=== PATIENT | female | born 1995 | race Caucasian/White ===

== ENCOUNTER → 2016-11-16 | Outpatient (CLI) | payer BC, OTHER ==
[2016-11-16 18:20] LABS: BASO % 0.1 %; BASO ABS # 0.01 K/uL (0-0.2); COMPLETE YES; EOS % 1.1 %; HEMATOCRIT 42.2 % (37-47); IG% 0.3 %; LYMPH % 34.3 %; LYMPH ABS # 2.49 K/uL (1.2-3.4); MEAN CELL VOLUME 86.5 fL (80-100); MEAN CORPUSCULAR HEMOGLOBIN 28.9 pg (25-34); MEAN CORPUSCULAR HGB CONC 33.4 g/dl (32-36); MEAN PLATELET VOLUME 8.6 fL (7.4-10.4); MONO % 4.8 %; NEUT % 59.4 %; PLATELET COUNT 373 K/uL (130-400); RED BLOOD COUNT 4.88 M/uL (4.2-5.4); WHITE BLOOD COUNT 7.26 K/uL (4.8-10.8)
[2016-11-16 18:37] LABS: ALT/SGPT 25 U/L (12-78); BLOOD UREA NITROGEN 13 mg/dl (7-18); BUN/CREATININE RATIO 13.7 (10-20); CALCIUM 8.8 mg/dl (8.5-10.1); CARBON DIOXIDE 28 mmol/L (21-32); CHLORIDE 107 mmol/L (98-107); CHOLESTEROL 202 mg/dl (0-200); CREATININE 0.95 mg/dl (0.60-1.20); GLUCOSE 93 mg/dl (70-99); POTASSIUM 3.9 mmol/L (3.5-5.1); SODIUM 142 mmol/L (136-145)
[2016-11-16 18:40] LABS: ALB/GLOB RATIO 1.1 (0.9-2); ALKALINE PHOSPHATASE 117 U/L (45-117); AST/SGOT 17 U/L (15-37); CHOLESTEROL/HDL RATIO 4.6; HDL CHOLESTEROL 44 mg/dl; LDL CHOLESTEROL CALCULATED 89 mg/dl; TRIGLYCERIDES 346 mg/dl (0-150); VERY LOW DENSITY LIPOPROT CALC 69 mg/dl
== END | disposition home or self-care (01) ==
LOC: C.LABSPEC 14:08
PROVIDERS: ATTEND Family Medicine
DX: Z00.00 Encounter for general adult medical examination without abnormal findings (principal); F41.1 Generalized anxiety disorder; Z68.38 Body mass index [BMI] 38.0-38.9, adult

== ENCOUNTER 2021-02-11 07:32 | Inpatient (IN) ==
[2021-02-11] MEDS ORDERED: OXYTOCIN 30 UNITS/500 ML BAG IV PRN ×2 (07:39)
[2021-02-11 08:04] LABS: Hematocrit (blood only) 38.4 % (37-47); Mean Corpuscular Hgb Conc 33.9 g/dL (32-36); Mean Corpuscular Volume 91.6 fL (80-100); Mean Platelet Volume 8.5 fL (7.4-10.4); Platelet Count 244 K/uL (130-400); RDW Coefficient of Variation 14.1 % (11.5-14.5); RDW Standard Deviation 47.5 fL (36.4-46.3); Red Blood Count 4.19 M/uL (4.2-5.4); White Blood Count 13.31 K/uL (4.8-10.8)
--- NOTE | 2021-02-11 08:17 | History & Physical Report ---
Date of Service February 11, 2021 Assessment & Plan (1) Encounter for induction of labor: Plan: 25 year old at 40 weeks 3 days coming in for IOL. - FHR baseline 140's, reactive NST, contractions every 4 minutes, movement active. - Started on LR and pitocin. Patient made aware of possible stronger contractions on pitocin and was agreeable. - Continue to monitor FHR and toco tracings and monitor patient. (2) Herpes: Plan: Patient on valtrex 500mg bid. - Patient does not want HSV history discussed with family in room. Admission and Anticipated Discharge Date Admission Date: February 11, 2021 History of Present Illness Chief Complaint: IOL Primary Care Provider: Carmelo Spence DO 25 year old 40 weeks and 3 days. Here for induction of labor. Complications with this include history of HSV on valtrex (Not to be discussed with other family members of patient in room). Has been attending OB appointments regularly. Currently on valtrex 500mg bid, ondansetron, multivitamin. Patient had Johnson catheter placed yesterday. Contractions: 4 minutes apart Fluid or blood loss: Some spotting, no fluid loss. movement: active. Allergies Allergy/AdvReac Type Severity Reaction Status Date / Time No Known Allergies Allergy Verified 02/11/21 08:09 Home Medications Medication Instructions Recorded Confirmed Type pediatric dtzszjim-bznh-wgr 1 tab PO DAILY 07/14/20 02/11/21 History (Francoise Complete (iron)) ondansetron HCl 4 mg tablet 4 mg PO Q8H #20 tab 10/22/20 02/11/21 Rx valacyclovir 500 mg tablet 500 mg PO BID 35 Days #70 tab 01/13/21 02/11/21 Rx (Valtrex) Patient History Medical History (Updated 02/11/21 @ 08:27 by Sal Wise DO) Anxiety Depression History of chicken pox Surgical History (Updated 07/14/20 @ 09:04 by Bridget Mccloud) S/P wisdom tooth extraction Family History (Updated 07/14/20 @ 09:05 by Bridget Mccloud) Grandmother (Maternal) Breast cancer Denies family history of Ovarian cancer Colorectal cancer Social History (Updated 07/14/20 @ 09:07 by Bridget Mccloud) Smoking Status: Never smoker Tobacco Type: Cigarettes Cigarettes Per Day: 5; Hx Alcohol Use: No Hx Substance Use: No Preferred Language: [place] Communication Ability: Effective Custom Tailor Required: No Beliefs That Will Affect Care: None marital status: Single marital status details: Soham Rene (35) [phone] Current Living Situation: Significant Other Current Living Situation Comment: lives alone, no pets current occupational status: employed current occupation: [employer] officer Other Information That Helps Us Care for You: No Feels Safe at Home: Yes Safety Concerns: Afraid for Self OB History No prior pregnancies. Review of Systems Denies fever, chills, sweats Denies shortness of breath, difficulty breathing, chest pain, palpitations, chest pressure. Denies breast pain. Denies dysuria. Denies headache or changes in vision Physical Exam Physical Exam: General: Alert, oriented. No acute distress. Cardiac: Regular rate and rhythm, no murmurs/rubs/gallops. Respiratory: Clear to auscultation bilaterally a/p, no wheezes/rales/rhonchi. No increased work of breathing. Symmetrical chest rise. No respiratory distress. Pelvic: Dilation 4cm; Effacement 50%; Station -[address] Braswell Baseline: 140's Accelerations: Present, reactive NST. Decelerations: None Results & Data ([facility]) Vital Signs (Past 12 Hours) Vital Signs Temp Pulse Resp BP 02/11/21 07:52 37.1 C 122 H 20 139/82 Laboratory Results - B+ - Antibody screen negative - Hgb 13 - Hct 38.4 - WBC 13.31 - Plt 244 - Rubella Immune - RPR non-reactive - Gonorrhea negative - Chlamydia negative - GBS - - Glucose 1 hour 50mg test 125 Supervising Physician Co-Signing Physician Notes Resident Physician Supervision Note: I was present with Dr. Lux during the history and exam. I discussed the case with the resident and agree with the findings and plan as documented in the note. Any exceptions or clarifications are listed here: at 40+ weeks who presents for induction of labor for postdates. Foely placed last night and removed this am--3.5/50/-2/mid/mod. Fetus category one. Plan pit induction. arom when indicated. epidural on demand. efw 8-9. Anticipate . Documented By: Chrissy Braswell MD, FACOG Resident Activity Tracking Resident Involvement: Resident Care Provided Care Provided: OB Delivery
[2021-02-11] MEDS: LACTATED RINGER'S 1,000 ML IV PRN ×4 (09:11→21:46)
[2021-02-11] MEDS ORDERED: BUTORPHANOL TARTRATE 1 MG/ML VIAL IV ONE (14:50)
--- NOTE | 2021-02-11 14:50 | Labor Progress Brief Note ---
Date of Service February 11, 2021 Subjective patient getting uncomfortable , requesting options for pain. Assessment & Plan (1) Encounter for induction of labor: Plan: mec with arom, will make peds aware. pain management discussed, opts for stadol. fetus category one. Admission and Anticipated Discharge Date Admission Date: February 11, 2021 Physical Exam Physical Exam: cx--4+/75/-2 arom--copious , thin green mec toco--q2-3min, pit at 13 efm--130s with mod variability, accels to 150s, no decels Results & Data ([facility]) Vital Signs (Past 12 Hours) Vital Signs Temp Pulse Resp BP 02/11/21 14:01 82 20 120/76 02/11/21 12:57 86 106/67 02/11/21 12:56 37.1 C 20 02/11/21 12:02 78 115/71 02/11/21 10:44 37.0 C 93 H 20 105/70 02/11/21 09:53 85 118/73 02/11/21 08:58 96 H 111/69 02/11/21 07:52 37.1 C 122 H 20 139/82 Coding Level of Care Code None Diagnoses Encounter for induction of labor Z34.90
[2021-02-11] MEDS ORDERED: SODIUM CHLORIDE 0.9% INJ 10 ML VIAL ONE (16:04)
[2021-02-11] MEDS ORDERED: ePHEDrine sulfate 50 MG/ML AMP ONE (16:04)
[2021-02-11] MEDS ORDERED: fentaNYL citrate 100 MCG/2 ML VIAL ONE ×2 (16:05→21:08)
[2021-02-11] MEDS ORDERED: BUPIVACAINE 0.25% 30 ML VIAL ONE ×2 (16:05→21:08)
[2021-02-11] MEDS ORDERED: fentaNYL 2MCG/ML ROPIVACAINE 1.25MG/ML 100 ML BAG EPI ONE (16:05)
[2021-02-11] MEDS ORDERED: ONDANSETRON INJ 2 MG/ML 2 ML VIAL IV PRN (16:16)
[2021-02-11] MEDS ORDERED: NALOXONE HCL 0.4 MG/1 ML VIAL/CARP IV PRN (16:16)
[2021-02-11] MEDS ORDERED: NALOXONE HCL 1 MG in SODIUM CHLORIDE 0.9% 1000ML 1,000 ML IV PRN (16:16)
[2021-02-11] MEDS ORDERED: ePHEDrine sulfate 50 MG/ML AMP IV PRN (16:16)
[2021-02-11] MEDS ORDERED: NALBUPHINE HCL INJ 10 MG/ML AMP IV PRN (16:16)
[2021-02-11] MEDS ORDERED: diphenhydrAMINE 50 MG/ML VIAL IV PRN (16:16)
--- NOTE | 2021-02-11 16:19 | Anesthesiology Consultation ---
Date of Service February 11, 2021 Assessment & Plan (1) Encounter for pre-operative examination: Chart Review Chart Review: Patient NOT seen in Pre Admission Testing and Acceptable Risk for Labor Epidural Consults Requested none History Height/Weight Height: 5 ft 6 in Weight: 104.326 kg Allergies Allergy/AdvReac Type Severity Reaction Status Date / Time No Known Allergies Allergy Verified 02/11/21 08:09 Medications Home Medications Medication Instructions Recorded Confirmed Last Taken pediatric wthprymy-vsgw-pmg 1 tab PO DAILY 07/14/20 02/11/21 02/11/21 06:30 (Flintstones Complete (iron)) ondansetron HCl 4 mg tablet 4 mg PO Q8H #20 tab 10/22/20 02/11/21 02/11/21 06:30 valacyclovir 500 mg tablet 500 mg PO BID 35 Days #70 tab 01/13/21 02/11/21 02/11/21 06:30 (Valtrex) Active Medications Generic Name Dose Route Start Last Admin Trade Name Freq PRN Reason Stop Dose Admin Oxytocin 30 units in 500 mls @ 13 mls/hr 02/11/21 07:39 02/11/21 14:00 Pitocin IV 02/13/21 07:38 0.78 units/hr .Q24H PRN 13 mls/hr Labor Induction/Augmentation Titration Protocol 0.78 UNITS/HR Lactated Ringer's 1,000 mls @ 125 mls/hr 02/11/21 08:00 02/11/21 16:08 Lr IV 02/13/21 07:59 999 mls/hr .Q8H PRN Administration L&D Protocol Protocol Past Medical History Medical History Anxiety Depression History of chicken pox Exercise / Class Metabolic Activity II 4-5 Yardwork/Stairs/Walk up hill Past Family History Family History Grandmother (Maternal) Breast cancer Denies family history of Ovarian cancer Colorectal cancer Past Surgical History Surgical History S/P wisdom tooth extraction Past Anesthesia History No Hx of Anesthesia Complications and No Family Hx of Anesthesia Complications History of PONV No Hx of PONV and No Hx of Motion Sickness Social History Smoking Status: Never smoker Smoking cigarettes per day: 5 Hx Alcohol Use: No Hx Substance Use: No Physical Exam Vital Signs Last Vital Signs Temp 37.5 C 02/11/21 15:02 Pulse 95 H 02/11/21 16:38 Resp 20 02/11/21 15:02 BP 118/60 02/11/21 16:38 Pulse Ox 97 02/11/21 16:35 Testing Laboratory Results 02/11/21 07:49
[2021-02-11] MEDS: fentaNYL 2MCG/ML ROPIVACAINE 1.25MG/ML 100 ML BAG EPI PRN (16:41)
--- NOTE | 2021-02-11 17:49 | Labor Progress Brief Note ---
Date of Service February 11, 2021 Subjective Patient comfortable after epidural Assessment & Plan (1) Encounter for induction of labor: Plan: iupc placed. continue pit for >200mvus. fetus category one. Admission and Anticipated Discharge Date Admission Date: February 11, 2021 Physical Exam Physical Exam: cx--4-5/75/-2 iupc placed toco--q2-4, pit at 7, had to 1/2 as had an episode of tachysystole efm--140s with mod variability, accels to 160s, no decels Results & Data ([facility]) Vital Signs (Past 12 Hours) Vital Signs Temp Pulse Resp BP Pulse Ox 02/11/21 17:45 83 97 02/11/21 17:40 76 97 02/11/21 17:36 88 120/76 02/11/21 17:35 87 97 02/11/21 17:30 73 20 111/68 95 02/11/21 17:25 74 115/65 97 02/11/21 17:20 92 H 117/72 98 02/11/21 17:16 76 125/71 02/11/21 17:15 74 98 02/11/21 17:11 89 133/60 02/11/21 17:10 91 H 97 02/11/21 17:05 78 97 02/11/21 17:04 83 116/55 L 02/11/21 17:02 88 117/70 02/11/21 17:00 37.7 C H 81 20 116/70 96 02/11/21 16:56 86 151/65 H 02/11/21 16:55 85 97 02/11/21 16:54 93 H 143/58 H 02/11/21 16:53 85 94 02/11/21 16:52 84 144/65 H 02/11/21 16:50 79 18 125/68 98 02/11/21 16:48 88 137/67 02/11/21 16:45 90 98 02/11/21 16:44 82 121/59 L 02/11/21 16:42 91 H 130/86 02/11/21 16:40 88 126/64 97 02/11/21 16:39 20 02/11/21 16:38 95 H 118/60 02/11/21 16:36 86 125/79 02/11/21 16:35 95 H 97 02/11/21 16:30 90 98 02/11/21 16:25 100 H 98 02/11/21 16:20 89 99 02/11/21 16:15 97 H 97 02/11/21 16:10 90 98 02/11/21 16:05 78 99 02/11/21 16:02 86 126/73 02/11/21 16:00 85 98 02/11/21 15:03 86 122/82 02/11/21 15:02 37.5 C 20 02/11/21 14:01 82 20 120/76 02/11/21 12:57 86 106/67 02/11/21 12:56 37.1 C 20 02/11/21 12:02 78 115/71 02/11/21 10:44 37.0 C 93 H 20 105/70 02/11/21 09:53 85 118/73 02/11/21 08:58 96 H 111/69 02/11/21 07:52 37.1 C 122 H 20 139/82 Coding Level of Care Code None Diagnoses Encounter for induction of labor Z34.90
[2021-02-11] MEDS ORDERED: NURSING L&D Epidural Breakthrough Pain Update ONE (20:55)
--- NOTE | 2021-02-11 21:20 | Communication Note ---
Date of Service: February 11, 2021 Pt stated having increasing labor pains. The epidural was bolused with 0.25% bupivacaine 3 mL and fentanyl 50 mcg. VSS stable throughout. Pt stated having improved labor pain.
[2021-02-11] MEDS ORDERED: Nursing to Pharmacy Communication SCH (22:15)
[2021-02-12] MEDS: fentaNYL 2MCG/ML ROPIVACAINE 1.25MG/ML 100 ML BAG EPI PRN ×2 (01:35→08:09)
--- NOTE | 2021-02-12 01:36 | Labor Progress Brief Note ---
Date of Service February 12, 2021 Subjective Patient comfortable after epidural Assessment & Plan (1) Encounter for induction of labor: Plan: Making good progress, head really molding . Fetus category one. Continue cu rrent management. Admission and Anticipated Discharge Date Admission Date: February 11, 2021 Physical Exam Physical Exam: cx--9/100/0 toco--q2-3, pit at 23, MVUs >200 efm--150s with mod variability, accels to 160s, no decels Results & Data ([facility]) Vital Signs (Past 12 Hours) Vital Signs Temp Pulse Resp BP Pulse Ox 02/12/21 01:32 114 H 93 02/12/21 01:30 89 93 02/12/21 01:26 82 107/66 02/12/21 01:25 81 94 02/12/21 01:22 77 94 02/12/21 01:20 86 93 02/12/21 01:15 67 94 02/12/21 01:11 74 110/66 02/12/21 01:10 72 93 02/12/21 01:08 79 94 02/12/21 01:05 80 92 02/12/21 01:00 78 16 93 02/12/21 00:55 76 112/71 94 02/12/21 00:50 79 93 02/12/21 00:45 73 93 02/12/21 00:41 76 116/71 02/12/21 00:40 68 94 02/12/21 00:35 80 93 02/12/21 00:31 80 94 02/12/21 00:30 78 18 96 02/12/21 00:26 81 111/75 02/12/21 00:25 79 96 02/12/21 00:21 70 94 02/12/21 00:20 72 95 02/12/21 00:15 77 96 02/12/21 00:10 88 107/73 98 02/12/21 00:07 84 94 02/12/21 00:05 88 93 02/12/21 00:02 90 92 02/12/21 00:00 77 16 94 02/11/21 23:56 77 94 02/11/21 23:55 73 94 02/11/21 23:53 80 99/57 L 02/11/21 23:51 76 94 02/11/21 23:50 76 95 02/11/21 23:45 74 93 02/11/21 23:40 73 94 02/11/21 23:38 76 93/54 L 02/11/21 23:35 71 94 02/11/21 23:34 76 94 02/11/21 23:30 77 16 94 02/11/21 23:25 73 94 02/11/21 23:24 73 98/53 L 02/11/21 23:20 87 95 02/11/21 23:18 70 94 02/11/21 23:15 81 97 02/11/21 23:14 37.7 C H 02/11/21 23:12 90 93 02/11/21 23:10 79 97 02/11/21 23:08 83 115/72 02/11/21 23:05 84 95 02/11/21 23:00 77 18 96 02/11/21 22:58 85 94 02/11/21 22:55 88 98 02/11/21 22:54 84 108/66 02/11/21 22:50 73 97 02/11/21 22:45 86 97 02/11/21 22:40 68 96 02/11/21 22:39 74 115/70 02/11/21 22:35 80 95 02/11/21 22:30 81 16 95 02/11/21 22:25 74 96 02/11/21 22:24 72 116/71 02/11/21 22:20 71 96 02/11/21 22:15 74 96 02/11/21 22:10 79 122/71 99 02/11/21 22:05 70 98 02/11/21 22:00 75 20 97 02/11/21 21:55 74 97 02/11/21 21:54 72 115/68 02/11/21 21:50 78 99 02/11/21 21:45 77 99 02/11/21 21:42 76 94 02/11/21 21:40 75 99 02/11/21 21:38 83 119/61 02/11/21 21:35 82 98 02/11/21 21:33 84 121/66 02/11/21 21:30 92 H 18 98 02/11/21 21:29 76 119/64 02/11/21 21:25 86 100 02/11/21 21:23 73 114/61 02/11/21 21:20 83 100 02/11/21 21:18 96 H 92 02/11/21 21:17 78 119/64 02/11/21 21:16 37.6 C H 02/11/21 21:15 81 99 02/11/21 21:14 71 122/63 02/11/21 21:12 80 130/65 02/11/21 21:10 74 99 02/11/21 21:07 80 96/55 L 02/11/21 21:05 84 98 02/11/21 21:00 83 20 98 02/11/21 20:55 75 97 02/11/21 20:52 78 101/66 02/11/21 20:50 92 H 97 02/11/21 20:45 83 99 02/11/21 20:40 88 100 02/11/21 20:36 76 112/64 02/11/21 20:35 76 100 02/11/21 20:30 80 18 97 02/11/21 20:25 78 96 02/11/21 20:22 80 110/60 02/11/21 20:20 73 96 02/11/21 20:15 82 97 02/11/21 20:10 73 97 02/11/21 20:06 75 110/65 02/11/21 20:05 70 97 02/11/21 20:00 71 16 100 02/11/21 19:55 72 100 02/11/21 19:50 79 109/57 L 100 02/11/21 19:45 75 99 02/11/21 19:40 88 99 02/11/21 19:35 91 H 99 02/11/21 19:30 82 18 99 02/11/21 19:25 80 99 02/11/21 19:21 81 118/72 02/11/21 19:20 86 99 02/11/21 19:15 77 97 02/11/21 19:10 94 H 98 02/11/21 19:06 73 116/69 02/11/21 19:05 78 99 02/11/21 19:00 79 99 02/11/21 18:59 37.1 C 18 02/11/21 18:55 86 99 02/11/21 18:51 95 H 117/74 02/11/21 18:50 93 H 99 02/11/21 18:45 81 99 02/11/21 18:40 97 H 99 02/11/21 18:36 94 H 122/75 02/11/21 18:35 80 96 02/11/21 18:30 68 20 96 02/11/21 18:25 72 96 02/11/21 18:21 73 113/69 02/11/21 18:20 72 97 02/11/21 18:15 67 96 02/11/21 18:10 90 97 02/11/21 18:06 73 117/73 02/11/21 18:05 74 95 02/11/21 18:00 71 20 96 02/11/21 17:55 79 97 02/11/21 17:51 81 115/71 02/11/21 17:50 81 97 02/11/21 17:45 83 97 02/11/21 17:40 76 97 02/11/21 17:36 88 120/76 02/11/21 17:35 87 97 02/11/21 17:30 73 20 111/68 95 02/11/21 17:25 74 115/65 97 02/11/21 17:20 92 H 117/72 98 02/11/21 17:16 76 125/71 02/11/21 17:15 74 98 02/11/21 17:11 89 133/60 02/11/21 17:10 91 H 97 02/11/21 17:05 78 97 02/11/21 17:04 83 116/55 L 02/11/21 17:02 88 117/70 02/11/21 17:00 37.7 C H 81 20 116/70 96 02/11/21 16:56 86 151/65 H 02/11/21 16:55 85 97 02/11/21 16:54 93 H 143/58 H 02/11/21 16:53 85 94 02/11/21 16:52 84 144/65 H 02/11/21 16:50 79 18 125/68 98 02/11/21 16:48 88 137/67 02/11/21 16:45 90 98 02/11/21 16:44 82 121/59 L 02/11/21 16:42 91 H 130/86 02/11/21 16:40 88 126/64 97 02/11/21 16:39 20 02/11/21 16:38 95 H 118/60 02/11/21 16:36 86 125/79 02/11/21 16:35 95 H 97 02/11/21 16:30 90 98 02/11/21 16:25 100 H 98 02/11/21 16:20 89 99 02/11/21 16:15 97 H 97 02/11/21 16:10 90 98 02/11/21 16:05 78 99 02/11/21 16:02 86 126/73 02/11/21 16:00 85 98 02/11/21 15:03 86 122/82 02/11/21 15:02 37.5 C 20 02/11/21 14:01 82 20 120/76 Coding Level of Care Code None Diagnoses Encounter for induction of labor Z34.90
[2021-02-12] MEDS ORDERED: ACETAMINOPHEN 500 MG TAB PO ONE (01:51)
[2021-02-12] MEDS ORDERED: GENTAMICIN CONSULT ACTIVE PRN (02:17)
[2021-02-12] MEDS ORDERED: GENTAMICIN SULFATE 80 MG in DEXTROSE 5% 100 ML IV ONE (02:30)
[2021-02-12] MEDS ORDERED: GENTAMICIN SULFATE 380 MG in DEXTROSE 5% 100 ML IV SCH (02:30)
[2021-02-12] MEDS: AMPICILLIN 2,000 MG in 0.9 % SODIUM CHLORIDE 100 ML IV SCH ×2 (02:56→09:03)
[2021-02-12] MEDS ORDERED: BUPIVACAINE 0.25% 30 ML VIAL ONE (03:08)
--- NOTE | 2021-02-12 03:20 | Communication Note ---
Date of Service: February 12, 2021 pt with increasing pain. bolused 4ml 0.25% bup mixed with 1ml 2% lido. pain improved. vss. pt was on monitor with q2 bp measurements.n
--- NOTE | 2021-02-12 03:38 | Labor Progress Brief Note ---
Date of Service February 12, 2021 Subjective Patient comfortable after epidural Assessment & Plan (1) Encounter for induction of labor: (2) Maternal fever affecting labor: Plan: Making good progress, head really molding but descending in the canal . Fetus category one overall. Continue current management. Anticipate pushing in the next couple of hours. Peanut ball in. Responding to antibiotics and tyleno l. Admission and Anticipated Discharge Date Admission Date: February 11, 2021 Physical Exam Physical Exam: cx--ant lip/100/+1 toco--q2-3, pit at 23, MVUs >200 efm--160s with mod variability, rare variable decels Results & Data ([facility]) Vital Signs (Past 12 Hours) Vital Signs Temp Pulse Resp BP Pulse Ox 02/12/21 03:32 101 H 94 02/12/21 03:30 82 97 02/12/21 03:29 88 120/80 02/12/21 03:27 84 93 02/12/21 03:25 95 H 96 02/12/21 03:22 92 H 122/75 02/12/21 03:20 81 118/70 96 02/12/21 03:18 91 H 123/71 02/12/21 03:16 91 H 121/66 02/12/21 03:15 89 97 02/12/21 03:14 85 129/74 02/12/21 03:10 85 127/70 97 02/12/21 03:06 85 94 02/12/21 03:05 88 95 02/12/21 03:01 84 94 02/12/21 03:00 83 20 96 02/12/21 02:55 37.8 C H 100 H 122/71 96 02/12/21 02:50 102 H 98 02/12/21 02:45 91 H 94 02/12/21 02:42 88 94 02/12/21 02:40 87 119/76 95 02/12/21 02:37 90 94 02/12/21 02:35 87 95 02/12/21 02:30 81 18 99 02/12/21 02:25 88 120/76 96 02/12/21 02:20 93 H 96 02/12/21 02:15 90 98 02/12/21 02:12 88 123/74 02/12/21 02:10 86 98 02/12/21 02:05 88 99 02/12/21 02:00 89 16 96 02/12/21 01:57 90 122/73 02/12/21 01:55 74 96 02/12/21 01:54 76 94 02/12/21 01:52 38.1 C H 02/12/21 01:50 105 H 98 02/12/21 01:45 81 97 02/12/21 01:42 90 133/71 02/12/21 01:40 81 99 02/12/21 01:35 75 99 02/12/21 01:32 114 H 93 02/12/21 01:30 89 16 93 02/12/21 01:26 82 107/66 02/12/21 01:25 81 94 02/12/21 01:22 77 94 02/12/21 01:20 86 93 02/12/21 01:15 67 94 02/12/21 01:11 74 110/66 02/12/21 01:10 72 93 02/12/21 01:08 79 94 02/12/21 01:05 80 92 02/12/21 01:00 78 16 93 02/12/21 00:55 76 112/71 94 02/12/21 00:50 79 93 02/12/21 00:45 73 93 02/12/21 00:41 76 116/71 02/12/21 00:40 68 94 02/12/21 00:35 80 93 02/12/21 00:31 80 94 02/12/21 00:30 78 18 96 02/12/21 00:26 81 111/75 02/12/21 00:25 79 96 02/12/21 00:21 70 94 02/12/21 00:20 72 95 02/12/21 00:15 77 96 02/12/21 00:10 88 107/73 98 02/12/21 00:07 84 94 02/12/21 00:05 88 93 02/12/21 00:02 90 92 02/12/21 00:00 77 16 94 02/11/21 23:56 77 94 02/11/21 23:55 73 94 02/11/21 23:53 80 99/57 L 02/11/21 23:51 76 94 02/11/21 23:50 76 95 02/11/21 23:45 74 93 02/11/21 23:40 73 94 02/11/21 23:38 76 93/54 L 02/11/21 23:35 71 94 02/11/21 23:34 76 94 02/11/21 23:30 77 16 94 02/11/21 23:25 73 94 02/11/21 23:24 73 98/53 L 02/11/21 23:20 87 95 02/11/21 23:18 70 94 02/11/21 23:15 81 97 02/11/21 23:14 37.7 C H 02/11/21 23:12 90 93 02/11/21 23:10 79 97 02/11/21 23:08 83 115/72 02/11/21 23:05 84 95 02/11/21 23:00 77 18 96 02/11/21 22:58 85 94 02/11/21 22:55 88 98 02/11/21 22:54 84 108/66 02/11/21 22:50 73 97 02/11/21 22:45 86 97 02/11/21 22:40 68 96 02/11/21 22:39 74 115/70 02/11/21 22:35 80 95 02/11/21 22:30 81 16 95 02/11/21 22:25 74 96 02/11/21 22:24 72 116/71 02/11/21 22:20 71 96 02/11/21 22:15 74 96 02/11/21 22:10 79 122/71 99 02/11/21 22:05 70 98 02/11/21 22:00 75 20 97 02/11/21 21:55 74 97 02/11/21 21:54 72 115/68 02/11/21 21:50 78 99 02/11/21 21:45 77 99 02/11/21 21:42 76 94 02/11/21 21:40 75 99 02/11/21 21:38 83 119/61 02/11/21 21:35 82 98 02/11/21 21:33 84 121/66 02/11/21 21:30 92 H 18 98 02/11/21 21:29 76 119/64 02/11/21 21:25 86 100 02/11/21 21:23 73 114/61 02/11/21 21:20 83 100 02/11/21 21:18 96 H 92 02/11/21 21:17 78 119/64 02/11/21 21:16 37.6 C H 02/11/21 21:15 81 99 02/11/21 21:14 71 122/63 02/11/21 21:12 80 130/65 02/11/21 21:10 74 99 02/11/21 21:07 80 96/55 L 02/11/21 21:05 84 98 02/11/21 21:00 83 20 98 02/11/21 20:55 75 97 02/11/21 20:52 78 101/66 02/11/21 20:50 92 H 97 02/11/21 20:45 83 99 02/11/21 20:40 88 100 02/11/21 20:36 76 112/64 02/11/21 20:35 76 100 02/11/21 20:30 80 18 97 02/11/21 20:25 78 96 02/11/21 20:22 80 110/60 02/11/21 20:20 73 96 02/11/21 20:15 82 97 02/11/21 20:10 73 97 02/11/21 20:06 75 110/65 02/11/21 20:05 70 97 02/11/21 20:00 71 16 100 02/11/21 19:55 72 100 02/11/21 19:50 79 109/57 L 100 02/11/21 19:45 75 99 02/11/21 19:40 88 99 02/11/21 19:35 91 H 99 02/11/21 19:30 82 18 99 02/11/21 19:25 80 99 02/11/21 19:21 81 118/72 02/11/21 19:20 86 99 02/11/21 19:15 77 97 02/11/21 19:10 94 H 98 02/11/21 19:06 73 116/69 02/11/21 19:05 78 99 02/11/21 19:00 79 99 02/11/21 18:59 37.1 C 18 02/11/21 18:55 86 99 02/11/21 18:51 95 H 117/74 02/11/21 18:50 93 H 99 02/11/21 18:45 81 99 02/11/21 18:40 97 H 99 02/11/21 18:36 94 H 122/75 08/27/21 18:35 80 96 02/11/21 18:30 68 20 96 02/11/21 18:25 72 96 02/11/21 18:21 73 113/69 02/11/21 18:20 72 97 02/11/21 18:15 67 96 02/11/21 18:10 90 97 02/11/21 18:06 73 117/73 02/11/21 18:05 74 95 02/11/21 18:00 71 20 96 02/11/21 17:55 79 97 02/11/21 17:51 81 115/71 02/11/21 17:50 81 97 02/11/21 17:45 83 97 02/11/21 17:40 76 97 02/11/21 17:36 88 120/76 02/11/21 17:35 87 97 02/11/21 17:30 73 20 111/68 95 02/11/21 17:25 74 115/65 97 02/11/21 17:20 92 H 117/72 98 02/11/21 17:16 76 125/71 02/11/21 17:15 74 98 02/11/21 17:11 89 133/60 02/11/21 17:10 91 H 97 02/11/21 17:05 78 97 02/11/21 17:04 83 116/55 L 02/11/21 17:02 88 117/70 02/11/21 17:00 37.7 C H 81 20 116/70 96 02/11/21 16:56 86 151/65 H 02/11/21 16:55 85 97 02/11/21 16:54 93 H 143/58 H 02/11/21 16:53 85 94 02/11/21 16:52 84 144/65 H 02/11/21 16:50 79 18 125/68 98 02/11/21 16:48 88 137/67 02/11/21 16:45 90 98 02/11/21 16:44 82 121/59 L 02/11/21 16:42 91 H 130/86 02/11/21 16:40 88 126/64 97 02/11/21 16:39 20 02/11/21 16:38 95 H 118/60 02/11/21 16:36 86 125/79 02/11/21 16:35 95 H 97 02/11/21 16:30 90 98 02/11/21 16:25 100 H 98 02/11/21 16:20 89 99 02/11/21 16:15 97 H 97 02/11/21 16:10 90 98 02/11/21 16:05 78 99 02/11/21 16:02 86 126/73 02/11/21 16:00 85 98 Coding Level of Care Code None Diagnoses Encounter for induction of labor Z34.90 Maternal fever affecting labor O75.2
[2021-02-12] MEDS: LACTATED RINGER'S 1,000 ML IV PRN (06:37)
--- NOTE | 2021-02-12 07:20 | Labor Progress Brief Note ---
Date of Service February 12, 2021 Subjective pt pushing. Assessment & Plan (1) Encounter for induction of labor: (2) Maternal fever affecting labor: Plan: Pt pushing. pt aware that I am assuming care. Fetus categ 2. Admission and Anticipated Discharge Date Admission Date: February 11, 2021 Physical Exam Genitourinary: OB Exam Monitor Tracing: + external FHT monitor used (150 mod variability), + external uterine monitor used (q2-3), + normal FHT variability and + variable decelerations (with pushing) Results & Data ([facility]) Vital Signs (Past 12 Hours) Vital Signs Temp Pulse Resp BP Pulse Ox 02/12/21 07:15 107 H 84 L 02/12/21 07:10 103 H 98 02/12/21 07:06 113 H 79 L 02/12/21 07:05 112 H 97 02/12/21 07:00 121 H 20 120/67 96 02/12/21 06:55 111 H 95 02/12/21 06:50 110 H 78 L 02/12/21 06:48 107 H 87 L 02/12/21 06:45 109 H 124/74 96 02/12/21 06:42 102 H 91 02/12/21 06:40 101 H 99 02/12/21 06:35 111 H 98 02/12/21 06:30 108 H 20 88 L 02/12/21 06:27 100 H 132/80 02/12/21 06:25 124 H 100 02/12/21 06:20 138 H 96 02/12/21 06:15 133 H 96 02/12/21 06:14 129 H 94 02/12/21 06:10 113 H 95 02/12/21 06:07 115 H 94 02/12/21 06:05 101 H 96 02/12/21 06:00 111 H 20 123/83 97 02/12/21 05:55 91 H 95 02/12/21 05:54 90 94 02/12/21 05:50 87 94 02/12/21 05:48 95 H 94 02/12/21 05:45 87 120/75 94 02/12/21 05:40 89 94 02/12/21 05:35 96 H 94 02/12/21 05:32 95 H 94 02/12/21 05:30 94 H 122/74 94 02/12/21 05:25 91 H 94 02/12/21 05:20 93 H 96 02/12/21 05:18 92 H 94 02/12/21 05:15 91 H 94 02/12/21 05:14 90 123/76 02/12/21 05:12 90 94 02/12/21 05:10 93 H 95 02/12/21 05:05 86 96 02/12/21 05:02 102 H 128/78 02/12/21 05:00 100.0 F H 114 H 18 96 02/12/21 04:55 110 H 98 02/12/21 04:50 93 H 97 02/12/21 04:46 90 131/78 02/12/21 04:45 90 94 02/12/21 04:42 92 H 93 02/12/21 04:40 88 95 02/12/21 04:35 89 94 02/12/21 04:31 88 130/78 02/12/21 04:30 89 16 96 02/12/21 04:28 95 H 94 02/12/21 04:25 106 H 99 02/12/21 04:20 105 H 100 02/12/21 04:15 99 H 125/86 98 02/12/21 04:13 82 94 02/12/21 04:10 83 93 02/12/21 04:05 81 95 02/12/21 04:00 86 16 118/77 97 02/12/21 03:55 86 95 02/12/21 03:50 84 97 02/12/21 03:46 89 123/76 02/12/21 03:45 84 97 02/12/21 03:40 83 97 02/12/21 03:35 96 H 99 02/12/21 03:32 101 H 94 02/12/21 03:30 82 16 97 02/12/21 03:29 88 120/80 02/12/21 03:27 84 93 02/12/21 03:25 95 H 96 02/12/21 03:22 92 H 122/75 02/12/21 03:20 81 118/70 96 02/12/21 03:18 91 H 123/71 02/12/21 03:16 91 H 121/66 02/12/21 03:15 89 97 02/12/21 03:14 85 129/74 02/12/21 03:10 85 127/70 97 02/12/21 03:06 85 94 02/12/21 03:05 88 95 02/12/21 03:01 84 94 02/12/21 03:00 83 20 96 02/12/21 02:55 100.0 F H 100 H 122/71 96 02/12/21 02:50 102 H 98 02/12/21 02:45 91 H 94 02/12/21 02:42 88 94 02/12/21 02:40 87 119/76 95 02/12/21 02:37 90 94 02/12/21 02:35 87 95 02/12/21 02:30 81 18 99 02/12/21 02:25 88 120/76 96 02/12/21 02:20 93 H 96 02/12/21 02:15 90 98 02/12/21 02:12 88 123/74 02/12/21 02:10 86 98 02/12/21 02:05 88 99 02/12/21 02:00 89 16 96 02/12/21 01:57 90 122/73 02/12/21 01:55 74 96 02/12/21 01:54 76 94 02/12/21 01:52 100.6 F H 02/12/21 01:50 105 H 98 02/12/21 01:45 81 97 02/12/21 01:42 90 133/71 02/12/21 01:40 81 99 02/12/21 01:35 75 99 02/12/21 01:32 114 H 93 02/12/21 01:30 89 16 93 02/12/21 01:26 82 107/66 02/12/21 01:25 81 94 02/12/21 01:22 77 94 02/12/21 01:20 86 93 02/12/21 01:15 67 94 02/12/21 01:11 74 110/66 02/12/21 01:10 72 93 02/12/21 01:08 79 94 02/12/21 01:05 80 92 02/12/21 01:00 78 16 93 02/12/21 00:55 76 112/71 94 02/12/21 00:50 79 93 02/12/21 00:45 73 93 02/12/21 00:41 76 116/71 02/12/21 00:40 68 94 02/12/21 00:35 80 93 02/12/21 00:31 80 94 02/12/21 00:30 78 18 96 02/12/21 00:26 81 111/75 02/12/21 00:25 79 96 02/12/21 00:21 70 94 02/12/21 00:20 72 95 02/12/21 00:15 77 96 02/12/21 00:10 88 107/73 98 02/12/21 00:07 84 94 02/12/21 00:05 88 93 02/12/21 00:02 90 92 02/12/21 00:00 77 16 94 02/11/21 23:56 77 94 02/11/21 23:55 73 94 02/11/21 23:53 80 99/57 L 02/11/21 23:51 76 94 02/11/21 23:50 76 95 02/11/21 23:45 74 93 02/11/21 23:40 73 94 02/11/21 23:38 76 93/54 L 02/11/21 23:35 71 94 02/11/21 23:34 76 94 02/11/21 23:30 77 16 94 02/11/21 23:25 73 94 02/11/21 23:24 73 98/53 L 02/11/21 23:20 87 95 02/11/21 23:18 70 94 02/11/21 23:15 81 97 02/11/21 23:14 99.9 F H 02/11/21 23:12 90 93 02/11/21 23:10 79 97 02/11/21 23:08 83 115/72 02/11/21 23:05 84 95 02/11/21 23:00 77 18 96 02/11/21 22:58 85 94 02/11/21 22:55 88 98 02/11/21 22:54 84 108/66 02/11/21 22:50 73 97 02/11/21 22:45 86 97 02/11/21 22:40 68 96 02/11/21 22:39 74 115/70 02/11/21 22:35 80 95 02/11/21 22:30 81 16 95 02/11/21 22:25 74 96 02/11/21 22:24 72 116/71 02/11/21 22:20 71 96 02/11/21 22:15 74 96 02/11/21 22:10 79 122/71 99 02/11/21 22:05 70 98 02/11/21 22:00 75 20 97 02/11/21 21:55 74 97 02/11/21 21:54 72 115/68 02/11/21 21:50 78 99 02/11/21 21:45 77 99 02/11/21 21:42 76 94 02/11/21 21:40 75 99 02/11/21 21:38 83 119/61 02/11/21 21:35 82 98 02/11/21 21:33 84 121/66 02/11/21 21:30 92 H 18 98 02/11/21 21:29 76 119/64 02/11/21 21:25 86 100 02/11/21 21:23 73 114/61 02/11/21 21:20 83 100 02/11/21 21:18 96 H 92 02/11/21 21:17 78 119/64 02/11/21 21:16 99.7 F H 02/11/21 21:15 81 99 02/11/21 21:14 71 122/63 02/11/21 21:12 80 130/65 02/11/21 21:10 74 99 02/11/21 21:07 80 96/55 L 02/11/21 21:05 84 98 02/11/21 21:00 83 20 98 02/11/21 20:55 75 97 02/11/21 20:52 78 101/66 02/11/21 20:50 92 H 97 02/11/21 20:45 83 99 02/11/21 20:40 88 100 02/11/21 20:36 76 112/64 02/11/21 20:35 76 100 02/11/21 20:30 80 18 97 02/11/21 20:25 78 96 02/11/21 20:22 80 110/60 02/11/21 20:20 73 96 02/11/21 20:15 82 97 02/11/21 20:10 73 97 02/11/21 20:06 75 110/65 02/11/21 20:05 70 97 02/11/21 20:00 71 16 100 02/11/21 19:55 72 100 02/11/21 19:50 79 109/57 L 100 08/27/21 19:45 75 99 02/11/21 19:40 88 99 02/11/21 19:35 91 H 99 02/11/21 19:30 82 18 99 02/11/21 19:25 80 99 02/11/21 19:21 81 118/72 02/11/21 19:20 86 99 Coding Level of Care Code None Diagnoses Encounter for induction of labor Z34.90 Maternal fever affecting labor O75.2
--- NOTE | 2021-02-12 07:51 | Labor Progress Brief Note ---
Date of Service February 12, 2021 Subjective pushing well. Assessment & Plan (1) Maternal fever affecting labor: (2) Encounter for induction of labor: Plan: Patient pushing well, with some inconsistency but with direction improves. Rec she change position to improve chance for rotation with pushing. pt agreeable. fhts categ 2. Admission and Anticipated Discharge Date Admission Date: February 11, 2021 Physical Exam Genitourinary: Manual OB Exam: + cervical dilation 10 cm, + cervical effacement 100% and + station (molding) + 2 OB Exam Monitor Tracing: + external FHT monitor used (spont accels), + external uterine monitor used (q2-5. pit restarted at 1), + category II and + variable decelerations (with pushing) Results & Data ([facility]) Vital Signs (Past 12 Hours) Vital Signs Temp Pulse Resp BP Pulse Ox 02/12/21 07:45 119 H 98 02/12/21 07:40 104 H 98 02/12/21 07:35 112 H 96 02/12/21 07:30 108 H 131/77 97 02/12/21 07:25 111 H 97 02/12/21 07:22 99 H 84 L 02/12/21 07:20 120 H 82 L 02/12/21 07:15 107 H 84 L 02/12/21 07:10 103 H 98 02/12/21 07:06 113 H 79 L 02/12/21 07:05 112 H 97 02/12/21 07:00 98.8 F 121 H 24 120/67 96 02/12/21 06:55 111 H 95 02/12/21 06:50 110 H 78 L 02/12/21 06:48 107 H 87 L 02/12/21 06:45 109 H 124/74 96 02/12/21 06:42 102 H 91 02/12/21 06:40 101 H 99 02/12/21 06:35 111 H 98 02/12/21 06:30 108 H 20 88 L 02/12/21 06:27 100 H 132/80 02/12/21 06:25 124 H 100 02/12/21 06:20 138 H 96 02/12/21 06:15 133 H 96 02/12/21 06:14 129 H 94 02/12/21 06:10 113 H 95 02/12/21 06:07 115 H 94 08/28/21 06:05 101 H 96 02/12/21 06:00 111 H 20 123/83 97 02/12/21 05:55 91 H 95 02/12/21 05:54 90 94 02/12/21 05:50 87 94 02/12/21 05:48 95 H 94 02/12/21 05:45 87 120/75 94 02/12/21 05:40 89 94 02/12/21 05:35 96 H 94 02/12/21 05:32 95 H 94 02/12/21 05:30 94 H 122/74 94 02/12/21 05:25 91 H 94 02/12/21 05:20 93 H 96 02/12/21 05:18 92 H 94 02/12/21 05:15 91 H 94 02/12/21 05:14 90 123/76 02/12/21 05:12 90 94 02/12/21 05:10 93 H 95 02/12/21 05:05 86 96 02/12/21 05:02 102 H 128/78 02/12/21 05:00 100.0 F H 114 H 18 96 02/12/21 04:55 110 H 98 02/12/21 04:50 93 H 97 02/12/21 04:46 90 131/78 02/12/21 04:45 90 94 02/12/21 04:42 92 H 93 02/12/21 04:40 88 95 02/12/21 04:35 89 94 02/12/21 04:31 88 130/78 02/12/21 04:30 89 16 96 02/12/21 04:28 95 H 94 02/12/21 04:25 106 H 99 02/12/21 04:20 105 H 100 02/12/21 04:15 99 H 125/86 98 02/12/21 04:13 82 94 02/12/21 04:10 83 93 02/12/21 04:05 81 95 02/12/21 04:00 86 16 118/77 97 02/12/21 03:55 86 95 02/12/21 03:50 84 97 02/12/21 03:46 89 123/76 02/12/21 03:45 84 97 02/12/21 03:40 83 97 02/12/21 03:35 96 H 99 02/12/21 03:32 101 H 94 02/12/21 03:30 82 16 97 02/12/21 03:29 88 120/80 02/12/21 03:27 84 93 02/12/21 03:25 95 H 96 02/12/21 03:22 92 H 122/75 02/12/21 03:20 81 118/70 96 02/12/21 03:18 91 H 123/71 02/12/21 03:16 91 H 121/66 02/12/21 03:15 89 97 02/12/21 03:14 85 129/74 02/12/21 03:10 85 127/70 97 02/12/21 03:06 85 94 02/12/21 03:05 88 95 02/12/21 03:01 84 94 02/12/21 03:00 83 20 96 02/12/21 02:55 100.0 F H 100 H 122/71 96 02/12/21 02:50 102 H 98 02/12/21 02:45 91 H 94 02/12/21 02:42 88 94 02/12/21 02:40 87 119/76 95 02/12/21 02:37 90 94 02/12/21 02:35 87 95 02/12/21 02:30 81 18 99 02/12/21 02:25 88 120/76 96 02/12/21 02:20 93 H 96 02/12/21 02:15 90 98 02/12/21 02:12 88 123/74 02/12/21 02:10 86 98 02/12/21 02:05 88 99 02/12/21 02:00 89 16 96 02/12/21 01:57 90 122/73 02/12/21 01:55 74 96 02/12/21 01:54 76 94 02/12/21 01:52 100.6 F H 02/12/21 01:50 105 H 98 02/12/21 01:45 81 97 02/12/21 01:42 90 133/71 02/12/21 01:40 81 99 02/12/21 01:35 75 99 02/12/21 01:32 114 H 93 02/12/21 01:30 89 16 93 02/12/21 01:26 82 107/66 02/12/21 01:25 81 94 02/12/21 01:22 77 94 02/12/21 01:20 86 93 02/12/21 01:15 67 94 02/12/21 01:11 74 110/66 02/12/21 01:10 72 93 02/12/21 01:08 79 94 02/12/21 01:05 80 92 02/12/21 01:00 78 16 93 02/12/21 00:55 76 112/71 94 02/12/21 00:50 79 93 02/12/21 00:45 73 93 02/12/21 00:41 76 116/71 02/12/21 00:40 68 94 02/12/21 00:35 80 93 02/12/21 00:31 80 94 02/12/21 00:30 78 18 96 02/12/21 00:26 81 111/75 02/12/21 00:25 79 96 02/12/21 00:21 70 94 02/12/21 00:20 72 95 02/12/21 00:15 77 96 02/12/21 00:10 88 107/73 98 02/12/21 00:07 84 94 02/12/21 00:05 88 93 02/12/21 00:02 90 92 02/12/21 00:00 77 16 94 02/11/21 23:56 77 94 02/11/21 23:55 73 94 02/11/21 23:53 80 99/57 L 02/11/21 23:51 76 94 02/11/21 23:50 76 95 02/11/21 23:45 74 93 02/11/21 23:40 73 94 02/11/21 23:38 76 93/54 L 02/11/21 23:35 71 94 02/11/21 23:34 76 94 02/11/21 23:30 77 16 94 02/11/21 23:25 73 94 02/11/21 23:24 73 98/53 L 02/11/21 23:20 87 95 02/11/21 23:18 70 94 02/11/21 23:15 81 97 02/11/21 23:14 99.9 F H 02/11/21 23:12 90 93 02/11/21 23:10 79 97 02/11/21 23:08 83 115/72 02/11/21 23:05 84 95 02/11/21 23:00 77 18 96 02/11/21 22:58 85 94 02/11/21 22:55 88 98 02/11/21 22:54 84 108/66 02/11/21 22:50 73 97 02/11/21 22:45 86 97 02/11/21 22:40 68 96 02/11/21 22:39 74 115/70 02/11/21 22:35 80 95 02/11/21 22:30 81 16 95 02/11/21 22:25 74 96 02/11/21 22:24 72 116/71 02/11/21 22:20 71 96 02/11/21 22:15 74 96 02/11/21 22:10 79 122/71 99 02/11/21 22:05 70 98 02/11/21 22:00 75 20 97 02/11/21 21:55 74 97 02/11/21 21:54 72 115/68 02/11/21 21:50 78 99 02/11/21 21:45 77 99 02/11/21 21:42 76 94 02/11/21 21:40 75 99 02/11/21 21:38 83 119/61 02/11/21 21:35 82 98 02/11/21 21:33 84 121/66 02/11/21 21:30 92 H 18 98 02/11/21 21:29 76 119/64 02/11/21 21:25 86 100 02/11/21 21:23 73 114/61 02/11/21 21:20 83 100 02/11/21 21:18 96 H 92 02/11/21 21:17 78 119/64 02/11/21 21:16 99.7 F H 02/11/21 21:15 81 99 02/11/21 21:14 71 122/63 02/11/21 21:12 80 130/65 02/11/21 21:10 74 99 02/11/21 21:07 80 96/55 L 02/11/21 21:05 84 98 02/11/21 21:00 83 20 98 02/11/21 20:55 75 97 02/11/21 20:52 78 101/66 02/11/21 20:50 92 H 97 02/11/21 20:45 83 99 02/11/21 20:40 88 100 02/11/21 20:36 76 112/64 02/11/21 20:35 76 100 02/11/21 20:30 80 18 97 02/11/21 20:25 78 96 02/11/21 20:22 80 110/60 02/11/21 20:20 73 96 02/11/21 20:15 82 97 02/11/21 20:10 73 97 02/11/21 20:06 75 110/65 02/11/21 20:05 70 97 02/11/21 20:00 71 16 100 02/11/21 19:55 72 100 02/11/21 19:50 79 109/57 L 100 Coding Level of Care Code None Diagnoses Maternal fever affecting labor O75.2 Encounter for induction of labor Z34.90
--- NOTE | 2021-02-12 09:52 | Labor Progress Brief Note ---
Date of Service February 12, 2021 Subjective pushing well but screaming in exhaustion, "i can't do this" Assessment & Plan (1) Encounter for induction of labor: (2) Maternal fever affecting labor: Plan: Patient expresses that she is exhausted. Has pushed for about 3hr. Per my observation sometimes more effective than others. Suspect LOP. She is crying with back pain. Based on my prior exam did tell her she has made progress and offered vacuum assistance, and reviewed risks, like cephalahematoma, failure, vs. continue pushing in current way, vs. c/s. She is crying and unable to ask me questions or make a decision about what she wants. She opts to have us leave room to decide with partner what she wants to do to proceed. FHTs categ1. Admission and Anticipated Discharge Date Admission Date: February 11, 2021 Physical Exam Genitourinary: Manual OB Exam: + cervical dilation 10 cm, + cervical effacement 100% and + station + 2 and + 3 OB Exam Monitor Tracing: + external FHT monitor used (165 Mod variability), + external uterine monitor used (q2-3), + category I and + normal FHT variability pushes to +3 with good effort, sometimes effort is inconsistent Results & Data ([facility]) Vital Signs (Past 12 Hours) Vital Signs Temp Pulse Resp BP Pulse Ox 02/12/21 09:45 103 H 95 02/12/21 09:40 106 H 94 02/12/21 09:35 106 H 93 02/12/21 09:30 138 H 92 02/12/21 09:25 125 H 88 L 02/12/21 09:24 92 H 146/81 H 02/12/21 09:20 95 H 96 02/12/21 09:15 100 H 92 02/12/21 09:12 100 H 88 L 02/12/21 09:10 102 H 95 02/12/21 09:05 87 96 02/12/21 09:00 108 H 94 02/12/21 08:57 99.1 F 26 H 02/12/21 08:55 115 H 95 02/12/21 08:50 100 H 95 02/12/21 08:45 95 H 139/80 96 02/12/21 08:41 105 H 87 L 02/12/21 08:40 103 H 94 02/12/21 08:35 92 H 95 02/12/21 08:34 97 H 87 L 02/12/21 08:30 84 132/76 93 02/12/21 08:25 119 H 91 02/12/21 08:20 103 H 91 02/12/21 08:15 116 H 92 02/12/21 08:11 93 H 87 L 02/12/21 08:10 99 H 96 02/12/21 08:05 94 H 95 02/12/21 08:00 115 H 140/85 100 02/12/21 07:59 104 H 88 L 02/12/21 07:55 101 H 96 02/12/21 07:51 98 H 85 L 02/12/21 07:50 96 H 98 02/12/21 07:45 119 H 98 02/12/21 07:40 104 H 98 02/12/21 07:35 112 H 96 02/12/21 07:30 108 H 131/77 97 02/12/21 07:25 111 H 97 02/12/21 07:22 99 H 84 L 02/12/21 07:20 120 H 82 L 02/12/21 07:15 107 H 84 L 02/12/21 07:10 103 H 98 02/12/21 07:06 113 H 79 L 02/12/21 07:05 112 H 97 02/12/21 07:00 98.8 F 121 H 24 120/67 96 02/12/21 06:55 111 H 95 02/12/21 06:50 110 H 78 L 02/12/21 06:48 107 H 87 L 02/12/21 06:45 109 H 124/74 96 02/12/21 06:42 102 H 91 02/12/21 06:40 101 H 99 02/12/21 06:35 111 H 98 02/12/21 06:30 108 H 20 88 L 02/12/21 06:27 100 H 132/80 02/12/21 06:25 124 H 100 02/12/21 06:20 138 H 96 02/12/21 06:15 133 H 96 02/12/21 06:14 129 H 94 02/12/21 06:10 113 H 95 02/12/21 06:07 115 H 94 02/12/21 06:05 101 H 96 02/12/21 06:00 111 H 20 123/83 97 02/12/21 05:55 91 H 95 02/12/21 05:54 90 94 02/12/21 05:50 87 94 02/12/21 05:48 95 H 94 02/12/21 05:45 87 120/75 94 02/12/21 05:40 89 94 02/12/21 05:35 96 H 94 02/12/21 05:32 95 H 94 02/12/21 05:30 94 H 122/74 94 02/12/21 05:25 91 H 94 02/12/21 05:20 93 H 96 02/12/21 05:18 92 H 94 02/12/21 05:15 91 H 94 02/12/21 05:14 90 123/76 02/12/21 05:12 90 94 02/12/21 05:10 93 H 95 02/12/21 05:05 86 96 02/12/21 05:02 102 H 128/78 02/12/21 05:00 100.0 F H 114 H 18 96 02/12/21 04:55 110 H 98 02/12/21 04:50 93 H 97 02/12/21 04:46 90 131/78 02/12/21 04:45 90 94 02/12/21 04:42 92 H 93 02/12/21 04:40 88 95 02/12/21 04:35 89 94 02/12/21 04:31 88 130/78 02/12/21 04:30 89 16 96 02/12/21 04:28 95 H 94 02/12/21 04:25 106 H 99 02/12/21 04:20 105 H 100 02/12/21 04:15 99 H 125/86 98 02/12/21 04:13 82 94 02/12/21 04:10 83 93 02/12/21 04:05 81 95 02/12/21 04:00 86 16 118/77 97 02/12/21 03:55 86 95 02/12/21 03:50 84 97 02/12/21 03:46 89 123/76 02/12/21 03:45 84 97 02/12/21 03:40 83 97 02/12/21 03:35 96 H 99 02/12/21 03:32 101 H 94 02/12/21 03:30 82 16 97 02/12/21 03:29 88 120/80 02/12/21 03:27 84 93 02/12/21 03:25 95 H 96 02/12/21 03:22 92 H 122/75 02/12/21 03:20 81 118/70 96 02/12/21 03:18 91 H 123/71 02/12/21 03:16 91 H 121/66 02/12/21 03:15 89 97 02/12/21 03:14 85 129/74 02/12/21 03:10 85 127/70 97 02/12/21 03:06 85 94 02/12/21 03:05 88 95 02/12/21 03:01 84 94 02/12/21 03:00 83 20 96 02/12/21 02:55 100.0 F H 100 H 122/71 96 02/12/21 02:50 102 H 98 02/12/21 02:45 91 H 94 02/12/21 02:42 88 94 02/12/21 02:40 87 119/76 95 02/12/21 02:37 90 94 02/12/21 02:35 87 95 02/12/21 02:30 81 18 99 02/12/21 02:25 88 120/76 96 02/12/21 02:20 93 H 96 02/12/21 02:15 90 98 02/12/21 02:12 88 123/74 02/12/21 02:10 86 98 02/12/21 02:05 88 99 02/12/21 02:00 89 16 96 02/12/21 01:57 90 122/73 02/12/21 01:55 74 96 02/12/21 01:54 76 94 02/12/21 01:52 100.6 F H 02/12/21 01:50 105 H 98 02/12/21 01:45 81 97 02/12/21 01:42 90 133/71 02/12/21 01:40 81 99 02/12/21 01:35 75 99 02/12/21 01:32 114 H 93 02/12/21 01:30 89 16 93 02/12/21 01:26 82 107/66 02/12/21 01:25 81 94 08 01:22 77 94 02/12/21 01:20 86 93 02/12/21 01:15 67 94 08/28/21 01:11 74 110/66 02/12/21 01:10 72 93 02/12/21 01:08 79 94 02/12/21 01:05 80 92 02/12/21 01:00 78 16 93 02/12/21 00:55 76 112/71 94 02/12/21 00:50 79 93 02/12/21 00:45 73 93 02/12/21 00:41 76 116/71 02/12/21 00:40 68 94 02/12/21 00:35 80 93 02/12/21 00:31 80 94 02/12/21 00:30 78 18 96 02/12/21 00:26 81 111/75 02/12/21 00:25 79 96 02/12/21 00:21 70 94 02/12/21 00:20 72 95 02/12/21 00:15 77 96 02/12/21 00:10 88 107/73 98 02/12/21 00:07 84 94 02/12/21 00:05 88 93 02/12/21 00:02 90 92 02/12/21 00:00 77 16 94 02/11/21 23:56 77 94 02/11/21 23:55 73 94 02/11/21 23:53 80 99/57 L 02/11/21 23:51 76 94 02/11/21 23:50 76 95 02/11/21 23:45 74 93 02/11/21 23:40 73 94 02/11/21 23:38 76 93/54 L 02/11/21 23:35 71 94 02/11/21 23:34 76 94 02/11/21 23:30 77 16 94 02/11/21 23:25 73 94 02/11/21 23:24 73 98/53 L 02/11/21 23:20 87 95 02/11/21 23:18 70 94 02/11/21 23:15 81 97 02/11/21 23:14 99.9 F H 02/11/21 23:12 90 93 02/11/21 23:10 79 97 02/11/21 23:08 83 115/72 02/11/21 23:05 84 95 02/11/21 23:00 77 18 96 02/11/21 22:58 85 94 02/11/21 22:55 88 98 02/11/21 22:54 84 108/66 02/11/21 22:50 73 97 02/11/21 22:45 86 97 02/11/21 22:40 68 96 02/11/21 22:39 74 115/70 02/11/21 22:35 80 95 02/11/21 22:30 81 16 95 02/11/21 22:25 74 96 02/11/21 22:24 72 116/71 02/11/21 22:20 71 96 02/11/21 22:15 74 96 02/11/21 22:10 79 122/71 99 02/11/21 22:05 70 98 02/11/21 22:00 75 20 97 02/11/21 21:55 74 97 02/11/21 21:54 72 115/68 02/11/21 21:50 78 99 Coding Level of Care Code None Diagnoses Encounter for induction of labor Z34.90 Maternal fever affecting labor O75.2
[2021-02-12] MEDS ORDERED: LACTATED RINGER'S 1,000 ML IV SCH ×3 (10:00→12:55)
[2021-02-12] MEDS ORDERED: CITRIC ACID/SODIUM CITRATE 15 ML UDC ONE (10:08)
--- NOTE | 2021-02-12 10:08 | Communication Note ---
Date of Service: February 12, 2021 Patient and partner elect c/s. She does not want to push anymore. Does not want attempt vacuum. She wants c/s. Consent reviewed and signed. Anesth aware and OR being readied. Nursing needed assistance placing nicole and nicole placed under sterile conditions.
[2021-02-12] MEDS ORDERED: LIDOCAINE 2%/EPINEPHRINE 1:200,000 20 ML SDV ONE (10:42)
[2021-02-12] MEDS ORDERED: ONDANSETRON INJ 2 MG/ML 2 ML VIAL ONE ×2 (10:42→10:51)
[2021-02-12] MEDS ORDERED: OXYTOCIN 10 UNITS/ML VIAL ONE (10:42)
[2021-02-12] MEDS ORDERED: MoRPHine SULFATE PF 1 MG/ML 10 ML AMP/VIAL ONE (10:42)
[2021-02-12] MEDS ORDERED: diphenhydrAMINE 50 MG/ML VIAL IV PRN (10:44)
[2021-02-12] MEDS ORDERED: NALOXONE HCL 1 MG in SODIUM CHLORIDE 0.9% 1000ML 1,000 ML IV PRN (10:44)
[2021-02-12] MEDS ORDERED: NALOXONE HCL 0.4 MG/1 ML VIAL/CARP IV PRN (10:44)
[2021-02-12] MEDS ORDERED: MEPERIDINE HCL 25 MG/ML CARP/VIAL IV PRN (10:44)
[2021-02-12] MEDS ORDERED: NALOXONE HCL 0.08 MG in SYRINGE 1.8 ML IV PRN (10:44)
[2021-02-12] MEDS ORDERED: ONDANSETRON INJ 2 MG/ML 2 ML VIAL IV PRN (10:44)
[2021-02-12] MEDS ORDERED: MoRPHine SULFATE PF 1 MG/ML 10 ML AMP/VIAL INT SPINAL ONE (10:44)
[2021-02-12] MEDS ORDERED: LACTATED RINGER'S 500 ML IV PRN (10:44)
[2021-02-12] MEDS ORDERED: ePHEDrine sulfate 50 MG/ML AMP IV PRN (10:44)
[2021-02-12] MEDS ORDERED: SODIUM CHLORIDE 0.9% 1000ML 1,000 ML IV SCH (10:45)
[2021-02-12] MEDS ORDERED: DC INTRASPINAL MORPHINE SCH (10:45)
[2021-02-12] MEDS ORDERED: NO NARCOTICS OR SEDATIVES SCH (10:45)
--- NOTE | 2021-02-12 11:18 | Post Operative Brief Note ---
PG Immediate Post Op with CF Date of Surgery February 12, 2021 Pre & Post Diagnosis Operation Date: 02/12/21 10:30 Pre-Op Diagnosis: 40 Weeks;Induction of Labor;Meconium Stained Fluid;Maternal Fever in labor;Desires Elective Section Post-Op Diagnosis: Same; Delivery of a live female child at 1041 ( Main OR 3) I identified the patient and participated in the time-out.: Yes Procedure Operation Date: 02/12/21 10:30 Actual Procedures p Primary Low Transverse Section in LD - Nickie Rodriguez MD, FACOG Surgeon Nickie Rodriguez MD, FACOG Cushion Cover Inspector RN Estimated Blood Loss 600 Findings Consistent with Post-Op Diagnosis (viable female infant, apgars 8,9. LOP position. normal uterus tube and ovaries bilaterally) Fluids 1000cc Specimens Specimen Description: A. Placenta-exam B.Cord Blood Drains Johnson Catheter Anesthesia Type Labor Epidural Complications none
--- NOTE | 2021-02-12 11:20 | Operative Report ---
PG Post Operative Report Pre & Post Diagnosis Operation Date: 02/12/21 10:30 Pre-Op Diagnosis: 40 Weeks;Induction of Labor;Meconium Stained Fluid;Maternal Fever in labor; Maternal Exhaustion; Desires Elective Section, Suspected OP position of fetus Post-Op Diagnosis: Same; LOP position I identified the patient and participated in the time-out.: Yes Procedure Operation Date: 02/12/21 10:30 Actual Procedures p Primary Low Transverse Section Surgeon Nickie Rodriguez MD, FACOG Educational Psychologist RN Estimated Blood Loss 600 Findings Consistent with Post-Op Diagnosis (viable female infant, apgars 8,9. LOP position. normal uterus tube and ovaries bilaterally) Fluids 1000cc Specimens placenta Drains nicole Anesthesia Type Labor Epidural Complications none Indications 25yo at 40+ wks marge presented to L&D for admission yesterday for planned induction of labor for postdatism. She began 2nd stage this am and was pushing for about 3hr bringing the cephalic to +2-+3 station. Suspected OP position but options given to patient to continue pushing or attempt vacuum assistance. She declined both due to back pain unrelenting and desired section on demand. Readied for OR, consent reviewed and signed. Description of Procedure The patient was taken to the operating room and identified. After adequate anesthesia was obtained, she was placed in the supine position with a leftward tilt on the operating table and prepped and draped in the usual sterile fashion. A nicole catheter had already been placed. The knife was used to create a Pfannensteil skin incision that was carried down to the underlying layer of fascia. The fascia was nicked in the midline and this opening was extended lat erally using Fish scissors. Julisa clamps were placed on the superior and inferior aspect of the fascial incision tenting it upward and the underlying rectus muscles were dissected off the overlying fascia both sharply and bluntly using Fish scissors. The rectus muscles were bluntly in the midline. The peritoneal cavity was bluntly entered into. This opening was stretched. The bladder blade was placed. The vesicouterine peritoneum was elevated and opened up into and the bladder flap was created digitally and bladder blade was replaced. The knife was used to create a hysterotomy and this opening was stretched. The operators hand was placed through the hysterotomy and the bladder blade was removed. The head was elevated and flexed and with fundal pressure the head was delivered. The shoulders and body were rapidly delivered. The cord was clamped and cut and the 's mouth and nares were bulb suction. The was handed off to the awaiting pediatricians. Cord blood was obtained. The placenta was manually expressed. The uterus was exteriorized and cleared of all clots and debris. Dilute IV Pitocin was begun. The uterine tone was improving. The hysterotomy was closed in a running interlocking fashion using 0 Vicryl followed by a second imbricating layer of 0 Vicryl. The hysterotomy was not hemostatic and 2 figure of eight sutures of 2-0 vicryl were placed left and right of the midline for excellent hemostasis. The pelvis was irrigated. The uterus was returned to the abdomen. The gutters were cleared of all clots and debris. The hysterotomy was reinspected and noted to be hemostatic. The fascia was then closed in running fashion using 0 Vicryl. The subcutaneous fat was copiously irrigated and reapproximated using 2-0 chromic. The skin was closed in a subcuticular fashion using 4-0 Vicryl. At this point the procedure was terminated. The patient was transferred to the recovery room in stable condition. All sponge, lap and needle counts are correct x2. I attest to the content of the Intraoperative Record and any orders documented therein. Any exceptions are noted below. OB Procedure charges OB Charges [id number] C/S (with antepartum and pp care. )
--- NOTE | 2021-02-12 11:43 | Anesthesia Procedure Note ---
Date of Service February 12, 2021 Anesthesia Post Epidural Note Vital Signs Vital Signs: Temp Pulse Resp BP Pulse Ox 99.1 F 108 H 22 117/58 L 92 02/12/21 08:57 02/12/21 11:42 02/12/21 10:20 02/12/21 10:19 02/12/21 11:42 Pain Intensity Bilateral Abdomen: Pain Intensity: 7 Notes Mental Status: alert / awake / arousable and participated in evaluation Nausea / Vomiting: adequately controlled Pain: adequately controlled Airway Patency, RR, SpO2: stable & adequate BP & HR: stable & adequate Hydration State: stable & adequate Neuraxial Anesthesia: was administered and sensory block is resolving Anesthetic Complications: no major complications apparent and Pt Satisfied with anesthetic care Epidural: Removed without complications and With tip intact
--- NOTE | 2021-02-12 11:43 | Anesthesiology Progress Note ---
Date of Service February 12, 2021 Anesthesia Post Procedure Vital Signs Vital Signs: Temp Pulse Resp BP Pulse Ox 02/12/21 11:38 110 H 80 L 02/12/21 11:37 95 H 98 02/12/21 11:32 99 H 98 02/12/21 10:20 22 02/12/21 10:19 90 117/58 L 02/12/21 10:17 98 H 112/55 L 02/12/21 10:15 92 H 119/58 L 98 02/12/21 10:13 96 H 126/62 02/12/21 10:11 91 H 122/55 L 02/12/21 10:10 108 H 97 02/12/21 10:09 91 H 143/63 H 02/12/21 10:07 96 H 128/74 02/12/21 10:05 94 H 96 02/12/21 10:00 100 H 20 96 02/12/21 09:55 110 H 148/81 H 95 02/12/21 09:50 103 H 95 02/12/21 09:45 103 H 22 95 02/12/21 09:40 106 H 94 02/12/21 09:35 106 H 93 02/12/21 09:30 138 H 26 H 92 02/12/21 09:25 125 H 88 L 02/12/21 09:24 92 H 146/81 H 02/12/21 09:20 95 H 96 02/12/21 09:15 100 H 92 02/12/21 09:12 100 H 88 L 02/12/21 09:10 102 H 95 02/12/21 09:05 87 96 02/12/21 09:00 108 H 94 02/12/21 08:57 99.1 F 26 H 02/12/21 08:55 115 H 95 02/12/21 08:50 100 H 95 02/12/21 08:45 95 H 139/80 96 02/12/21 08:41 105 H 87 L 02/12/21 08:40 103 H 94 02/12/21 08:35 92 H 95 02/12/21 08:34 97 H 87 L 02/12/21 08:30 84 132/76 93 02/12/21 08:25 119 H 91 02/12/21 08:20 103 H 91 02/12/21 08:15 116 H 92 02/12/21 08:11 93 H 87 L 02/12/21 08:10 99 H 96 02/12/21 08:05 94 H 95 02/12/21 08:00 115 H 140/85 100 02/12/21 07:59 104 H 88 L 02/12/21 07:55 101 H 96 02/12/21 07:51 98 H 85 L 02/12/21 07:50 96 H 98 02/12/21 07:45 119 H 98 02/12/21 07:40 104 H 98 02/12/21 07:35 112 H 96 02/12/21 07:30 108 H 131/77 97 02/12/21 07:25 111 H 97 02/12/21 07:22 99 H 84 L 02/12/21 07:20 120 H 82 L 02/12/21 07:15 107 H 84 L 02/12/21 07:10 103 H 98 02/12/21 07:06 113 H 79 L 02/12/21 07:05 112 H 97 02/12/21 07:00 98.8 F 121 H 24 120/67 96 02/12/21 06:55 111 H 95 02/12/21 06:50 110 H 78 L 02/12/21 06:48 107 H 87 L 02/12/21 06:45 109 H 124/74 96 02/12/21 06:42 102 H 91 02/12/21 06:40 101 H 99 02/12/21 06:35 111 H 98 02/12/21 06:30 108 H 20 88 L 02/12/21 06:27 100 H 132/80 02/12/21 06:25 124 H 100 02/12/21 06:20 138 H 96 02/12/21 06:15 133 H 96 02/12/21 06:14 129 H 94 02/12/21 06:10 113 H 95 02/12/21 06:07 115 H 94 02/12/21 06:05 101 H 96 02/12/21 06:00 111 H 20 123/83 97 02/12/21 05:55 91 H 95 02/12/21 05:54 90 94 02/12/21 05:50 87 94 02/12/21 05:48 95 H 94 02/12/21 05:45 87 120/75 94 02/12/21 05:40 89 94 08/28/21 05:35 96 H 94 02/12/21 05:32 95 H 94 02/12/21 05:30 94 H 122/74 94 02/12/21 05:25 91 H 94 02/12/21 05:20 93 H 96 02/12/21 05:18 92 H 94 02/12/21 05:15 91 H 94 02/12/21 05:14 90 123/76 02/12/21 05:12 90 94 02/12/21 05:10 93 H 95 02/12/21 05:05 86 96 02/12/21 05:02 102 H 128/78 02/12/21 05:00 100.0 F H 114 H 18 96 02/12/21 04:55 110 H 98 02/12/21 04:50 93 H 97 02/12/21 04:46 90 131/78 02/12/21 04:45 90 94 02/12/21 04:42 92 H 93 02/12/21 04:40 88 95 02/12/21 04:35 89 94 02/12/21 04:31 88 130/78 02/12/21 04:30 89 16 96 02/12/21 04:28 95 H 94 02/12/21 04:25 106 H 99 02/12/21 04:20 105 H 100 02/12/21 04:15 99 H 125/86 98 02/12/21 04:13 82 94 02/12/21 04:10 83 93 02/12/21 04:05 81 95 02/12/21 04:00 86 16 118/77 97 02/12/21 03:55 86 95 02/12/21 03:50 84 97 02/12/21 03:46 89 123/76 02/12/21 03:45 84 97 02/12/21 03:40 83 97 02/12/21 03:35 96 H 99 02/12/21 03:32 101 H 94 02/12/21 03:30 82 16 97 02/12/21 03:29 88 120/80 02/12/21 03:27 84 93 02/12/21 03:25 95 H 96 02/12/21 03:22 92 H 122/75 02/12/21 03:20 81 118/70 96 02/12/21 03:18 91 H 123/71 08/28/21 03:16 91 H 121/66 02/12/21 03:15 89 97 02/12/21 03:14 85 129/74 02/12/21 03:10 85 127/70 97 02/12/21 03:06 85 94 02/12/21 03:05 88 95 02/12/21 03:01 84 94 02/12/21 03:00 83 20 96 02/12/21 02:55 100.0 F H 100 H 122/71 96 02/12/21 02:50 102 H 98 02/12/21 02:45 91 H 94 02/12/21 02:42 88 94 02/12/21 02:40 87 119/76 95 02/12/21 02:37 90 94 02/12/21 02:35 87 95 02/12/21 02:30 81 18 99 02/12/21 02:25 88 120/76 96 02/12/21 02:20 93 H 96 02/12/21 02:15 90 98 02/12/21 02:12 88 123/74 02/12/21 02:10 86 98 02/12/21 02:05 88 99 02/12/21 02:00 89 16 96 02/12/21 01:57 90 122/73 02/12/21 01:55 74 96 02/12/21 01:54 76 94 02/12/21 01:52 100.6 F H 02/12/21 01:50 105 H 98 02/12/21 01:45 81 97 02/12/21 01:42 90 133/71 02/12/21 01:40 81 99 02/12/21 01:35 75 99 02/12/21 01:32 114 H 93 02/12/21 01:30 89 16 93 02/12/21 01:26 82 107/66 02/12/21 01:25 81 94 02/12/21 01:22 77 94 02/12/21 01:20 86 93 02/12/21 01:15 67 94 02/12/21 01:11 74 110/66 02/12/21 01:10 72 93 02/12/21 01:08 79 94 02/12/21 01:05 80 92 02/12/21 01:00 78 16 93 02/12/21 00:55 76 112/71 94 02/12/21 00:50 79 93 02/12/21 00:45 73 93 02/12/21 00:41 76 116/71 02/12/21 00:40 68 94 02/12/21 00:35 80 93 02/12/21 00:31 80 94 02/12/21 00:30 78 18 96 02/12/21 00:26 81 111/75 02/12/21 00:25 79 96 02/12/21 00:21 70 94 02/12/21 00:20 72 95 02/12/21 00:15 77 96 02/12/21 00:10 88 107/73 98 02/12/21 00:07 84 94 02/12/21 00:05 88 93 02/12/21 00:02 90 92 02/12/21 00:00 77 16 94 02/11/21 23:56 77 94 02/11/21 23:55 73 94 02/11/21 23:53 80 99/57 L 02/11/21 23:51 76 94 02/11/21 23:50 76 95 02/11/21 23:45 74 93 02/11/21 23:40 73 94 02/11/21 23:38 76 93/54 L 02/11/21 23:35 71 94 02/11/21 23:34 76 94 02/11/21 23:30 77 16 94 02/11/21 23:25 73 94 02/11/21 23:24 73 98/53 L 02/11/21 23:20 87 95 02/11/21 23:18 70 94 02/11/21 23:15 81 97 02/11/21 23:14 99.9 F H 02/11/21 23:12 90 93 02/11/21 23:10 79 97 02/11/21 23:08 83 115/72 02/11/21 23:05 84 95 02/11/21 23:00 77 18 96 02/11/21 22:58 85 94 02/11/21 22:55 88 98 02/11/21 22:54 84 108/66 02/11/21 22:50 73 97 02/11/21 22:45 86 97 02/11/21 22:40 68 96 02/11/21 22:39 74 115/70 02/11/21 22:35 80 95 02/11/21 22:30 81 16 95 02/11/21 22:25 74 96 02/11/21 22:24 72 116/71 02/11/21 22:20 71 96 02/11/21 22:15 74 96 02/11/21 22:10 79 122/71 99 02/11/21 22:05 70 98 02/11/21 22:00 75 20 97 02/11/21 21:55 74 97 02/11/21 21:54 72 115/68 02/11/21 21:50 78 99 02/11/21 21:45 77 99 02/11/21 21:42 76 94 02/11/21 21:40 75 99 02/11/21 21:38 83 119/61 02/11/21 21:35 82 98 02/11/21 21:33 84 121/66 02/11/21 21:30 92 H 18 98 02/11/21 21:29 76 119/64 02/11/21 21:25 86 100 02/11/21 21:23 73 114/61 02/11/21 21:20 83 100 02/11/21 21:18 96 H 92 02/11/21 21:17 78 119/64 02/11/21 21:16 99.7 F H 02/11/21 21:15 81 99 02/11/21 21:14 71 122/63 02/11/21 21:12 80 130/65 02/11/21 21:10 74 99 02/11/21 21:07 80 96/55 L 02/11/21 21:05 84 98 02/11/21 21:00 83 20 98 02/11/21 20:55 75 97 02/11/21 20:52 78 101/66 02/11/21 20:50 92 H 97 02/11/21 20:45 83 99 02/11/21 20:40 88 100 02/11/21 20:36 76 112/64 02/11/21 20:35 76 100 02/11/21 20:30 80 18 97 02/11/21 20:25 78 96 02/11/21 20:22 80 110/60 02/11/21 20:20 73 96 02/11/21 20:15 82 97 02/11/21 20:10 73 97 02/11/21 20:06 75 110/65 08/27/21 20:05 70 97 02/11/21 20:00 71 16 100 02/11/21 19:55 72 100 02/11/21 19:50 79 109/57 L 100 02/11/21 19:45 75 99 02/11/21 19:40 88 99 02/11/21 19:35 91 H 99 02/11/21 19:30 82 18 99 02/11/21 19:25 80 99 02/11/21 19:21 81 118/72 02/11/21 19:20 86 99 02/11/21 19:15 77 97 02/11/21 19:10 94 H 98 02/11/21 19:06 73 116/69 02/11/21 19:05 78 99 02/11/21 19:00 79 99 02/11/21 18:59 98.8 F 18 02/11/21 18:55 86 99 02/11/21 18:51 95 H 117/74 02/11/21 18:50 93 H 99 02/11/21 18:45 81 99 02/11/21 18:40 97 H 99 02/11/21 18:36 94 H 122/75 02/11/21 18:35 80 96 02/11/21 18:30 68 20 96 02/11/21 18:25 72 96 02/11/21 18:21 73 113/69 02/11/21 18:20 72 97 02/11/21 18:15 67 96 02/11/21 18:10 90 97 02/11/21 18:06 73 117/73 02/11/21 18:05 74 95 02/11/21 18:00 71 20 96 02/11/21 17:55 79 97 02/11/21 17:51 81 115/71 02/11/21 17:50 81 97 02/11/21 17:45 83 97 02/11/21 17:40 76 97 02/11/21 17:36 88 120/76 02/11/21 17:35 87 97 02/11/21 17:30 73 20 111/68 95 02/11/21 17:25 74 115/65 97 02/11/21 17:20 92 H 117/72 98 02/11/21 17:16 76 125/71 02/11/21 17:15 74 98 02/11/21 17:11 89 133/60 02/11/21 17:10 91 H 97 02/11/21 17:05 78 97 02/11/21 17:04 83 116/55 L 02/11/21 17:02 88 117/70 02/11/21 17:00 99.9 F H 81 20 116/70 96 02/11/21 16:56 86 151/65 H 02/11/21 16:55 85 97 02/11/21 16:54 93 H 143/58 H 02/11/21 16:53 85 94 02/11/21 16:52 84 144/65 H 02/11/21 16:50 79 18 125/68 98 02/11/21 16:48 88 137/67 02/11/21 16:45 90 98 02/11/21 16:44 82 121/59 L 02/11/21 16:42 91 H 130/86 02/11/21 16:40 88 126/64 97 02/11/21 16:39 20 02/11/21 16:38 95 H 118/60 02/11/21 16:36 86 125/79 02/11/21 16:35 95 H 97 02/11/21 16:30 90 98 02/11/21 16:25 100 H 98 02/11/21 16:20 89 99 02/11/21 16:15 97 H 97 02/11/21 16:10 90 98 02/11/21 16:05 78 99 02/11/21 16:02 86 126/73 02/11/21 16:00 85 98 02/11/21 15:03 86 122/82 02/11/21 15:02 99.5 F 20 02/11/21 14:01 82 20 120/76 02/11/21 12:57 86 106/67 02/11/21 12:56 98.8 F 20 02/11/21 12:02 78 115/71 Pain Intensity Bilateral Abdomen: Pain Intensity: 7 Transfer of Care Handoff Completed per policy Notes Mental Status: alert / awake / arousable and participated in evaluation Nausea / Vomiting: adequately controlled Pain: adequately controlled Airway Patency, RR, SpO2: stable & adequate BP & HR: stable & adequate Hydration State: stable & adequate Neuraxial Anesthesia: was administered and sensory block is resolving Anesthetic Complications: no major complications apparent and Pt Satisfied with anesthetic care
[2021-02-12] MEDS: KETOROLAC 30 MG/ML VIAL IV PRN (11:48)
[2021-02-12] MEDS ORDERED: SENNA 8.6 MG TAB PO PRN (12:55)
[2021-02-12] MEDS ORDERED: BENZOCAINE 20% AER SPR 82.5 GM CAN EXT PRN (12:55)
[2021-02-12] MEDS ORDERED: MAGNESIUM HYDROXIDE SUSP 30 ML UDC PO PRN (12:55)
[2021-02-12] MEDS ORDERED: SUPERCREAM 0.870% 15 GM JAR EXT PRN (12:55)
[2021-02-12] MEDS ORDERED: HYDROCORTISONE ACETATE 25 MG SUPP PR PRN (12:55)
[2021-02-12] MEDS ORDERED: DIPHTHERIA/TETANUS/PERTUSSIS 0.5 ML SYR/VIAL IM ONE (12:55)
[2021-02-12] MEDS: OXYTOCIN 20 UNITS in LACTATED RINGER'S 1,000 ML IV SCH ×2 (14:15→22:13)
[2021-02-12] MEDS: SIMETHICONE 80 MG CHEW PO SCH ×2 (16:48→20:43)
[2021-02-12] MEDS: DOCUSATE SODIUM 100 MG CAP PO SCH (20:43)
[2021-02-12] MEDS: NALBUPHINE HCL INJ 10 MG/ML AMP IV PRN (21:11)
[2021-02-13] MEDS: KETOROLAC 30 MG/ML VIAL IV PRN (00:30)
[2021-02-13] MEDS: NALBUPHINE HCL INJ 10 MG/ML AMP IV PRN (01:26)
[2021-02-13] MEDS: oxyCODONE/ACETAMINOPHEN 5mg/325mg TAB PO PRN ×4 (04:31→20:06)
[2021-02-13] MEDS ORDERED: PROMETHAZINE HCL 25 MG in SODIUM CHLORIDE 0.9% 50 ML IV PRN (04:45)
[2021-02-13] MEDS ORDERED: diphenhydrAMINE 50 MG/ML VIAL IV PRN (04:45)
[2021-02-13] MEDS ORDERED: ONDANSETRON INJ 2 MG/ML 2 ML VIAL IV PRN (04:45)
[2021-02-13] MEDS ORDERED: ZOLPIDEM TARTRATE 5 MG TAB PO PRN (04:45)
[2021-02-13] MEDS ORDERED: diphenhydrAMINE Capsule 25 MG CAP PO PRN (04:45)
[2021-02-13] MEDS ORDERED: KETOROLAC 30 MG/ML VIAL IV PRN (04:45)
[2021-02-13 06:38] LABS: Basophils # (auto) 0.01 K/uL (0-0.2); Basophils % (auto) 0.1 %; Eosinophils # (auto) 0.15 K/uL (0-0.5); Eosinophils % (auto) 1.1 %; Hematocrit (blood only) 28.1 % (37-47); Hemoglobin 9.5 g/dL (12.0-16.0); Immature Granulocytes # (auto) 0.05 K/uL (0.00-0.02); Immature Granulocytes % (auto) 0.4 %; Lymphocytes # (auto) 1.26 K/uL (1.2-3.4); Lymphocytes % (auto) 9.2 %; Mean Corpuscular Hgb Conc 33.8 g/dL (32-36); Mean Corpuscular Volume 91.8 fL (80-100); Mean Platelet Volume 8.4 fL (7.4-10.4); Monocytes # (auto) 0.79 K/uL (0.11-0.59); Monocytes % (auto) 5.8 %; Neutrophils # (auto) 11.47 K/uL (1.4-6.5); Neutrophils % (auto) 83.4 %; Platelet Count 184 K/uL (130-400); RDW Coefficient of Variation 14.1 % (11.5-14.5); RDW Standard Deviation 47.1 fL (36.4-46.3); Red Blood Count 3.06 M/uL (4.2-5.4); White Blood Count 13.73 K/uL (4.8-10.8)
[2021-02-13] MEDS: PRENATAL VITAMIN 1 TAB PO SCH (08:09)
[2021-02-13] MEDS: FERROUS SULFATE 325 MG TAB PO SCH (08:10)
[2021-02-13] MEDS: DOCUSATE SODIUM 100 MG CAP PO SCH ×2 (08:10→20:06)
[2021-02-13] MEDS: SIMETHICONE 80 MG CHEW PO SCH ×3 (08:10→20:06)
[2021-02-13] MEDS: IBUPROFEN 600 MG TAB PO PRN ×3 (09:31→20:06)
--- NOTE | 2021-02-13 09:39 | Obstetrical Progress Note ---
Date of Service February 13, 2021 Assessment & Plan (1) care following delivery: doing well. hgb noted. routine pp care. adv diet, ambulate, await void. Day #:: 1 Subjective Passing Gas:: Yes Diet Tolerance:: clear liquids Lochia:: Small Feeding Type:: bottle feeding denies pain issues, but is sore. has ice pack on incision line. she just got catheter out so no void yet. has been in bed, scds not on and reviewed that is not ok, need to prevent dvt while in bed. Constitutional: + as per Subjective / HPI Physical Exam Constitutional WD/WN, vitals as above Respiratory normal respiratory effort, lungs clear to auscultation Cardiovascular Rate/Rhythm: regular rate and regular rhythm Gastrointestinal (Abdomen) Inspection/Auscultation: abdomen normal to inspection and + abdominal surgical incision (c/d/i) Percussion/Palpation: abdomen soft Fundus firm 2cm down Musculoskeletal nt calves no edema Neurologic grossly normal Psychiatric A+Ox3, euthymic affect Results & Data ([facility]) Vital Signs (Past 12 Hours) Vital Signs Temp Pulse Resp BP Pulse Ox 02/13/21 04:33 97.9 F 92 H 20 115/73 96 02/13/21 03:30 18 96 02/13/21 02:15 18 93 02/13/21 01:33 20 93 02/13/21 00:20 98.4 F 82 20 112/71 98 02/12/21 23:45 18 93 02/12/21 22:04 18 95
[2021-02-13] MEDS ORDERED: bisacodyL 5 MG TABEC PO SCH (20:00)
[2021-02-14] MEDS: IBUPROFEN 600 MG TAB PO PRN ×3 (03:41→13:23)
[2021-02-14] MEDS: oxyCODONE/ACETAMINOPHEN 5mg/325mg TAB PO PRN ×3 (03:41→13:23)
[2021-02-14 06:16] LABS: Hematocrit (blood only) 24.7 % (37-47); Hemoglobin 8.4 g/dL (12.0-16.0)
--- NOTE | 2021-02-14 06:59 | Obstetrical Progress Note ---
Date of Service <Rodney Ochoa MD - Last Filed: 02/14/21 07:19> February 14, 2021 Assessment & Plan <Rodney Ochoa MD - Last Filed: 02/14/21 07:19> (1) Encounter for induction of labor: 25 year old , POD2 from at 40 wks 3 days -Continue routine care, pt can be discharged today -Vital signs reviewed, WNL -B+, GBS-, Rubella immune -Ambulating well, pain well controlled with Motrin, Tylenol PRN. Tolerating regular diet, passing gas but no BM. Exclusively bottle-feeding. -Hgb 8.4, asymptomatic - (2) Herpes: Patient on valtrex 500mg bid during , can be discontinued post- delivery. <Nickie Rodriguez MD, FACOG - Last Filed: 02/14/21 07:22> (1) Encounter for induction of labor: (2) Herpes: Subjective <Rodney Ochoa MD - Last Filed: 02/14/21 07:19> Ambulation: ambulating normally Voiding: no voiding problems Passing Gas:: Yes Diet Tolerance:: regular diet Feeding Type:: bottle feeding Current Pain Level(1-10): 2 Pt feeling well, no acute complaints. Has not passed BM yet. Reports minimal pain around incision site. Constitutional: + as per Subjective / HPI Physical Exam <Rodney Ochoa MD - Last Filed: 02/14/21 07:19> General: Alert, oriented. Obese. No acute distress. Cardiac: Regular rate and rhythm, no murmurs/rubs/gallops. Respiratory: Clear to auscultation bilaterally a/p, no wheezes/rales/rhonchi. No increased work of breathing. Symmetrical chest rise. No respiratory distress. Abdomen: Soft, nontender, nondistended. Surgical scar healing well, without erythema or drainage. Extremities- warm, well-perfused, negative Marimar sign b/l Results & Data ([facility]) <Rodney Ochoa MD - Last Filed: 02/14/21 07:19> Vital Signs (Past 12 Hours) Vital Signs Temp Pulse Resp BP Pulse Ox 02/13/21 23:50 36.4 C L 85 17 107/66 98 08/29/21 19:55 36.8 C 94 H 18 104/66 <Nickie Rodriguez MD, FACOG - Last Filed: 02/14/21 07:22> Co-Signing Physician Notes Resident Physician Supervision Note: I was present with Dr. Ochoa during the history and exam. I discussed the case with the resident and agree with the findings and plan as documented in the note. Any exceptions or clarifications are listed here: doing well, wants to go home, eating, voiding, ambulating, bottle feeding. cor rrr, lungs ctab, abd soft ff 1 down mild appro tenderness, incision c/d/i, ext nt calves, tr edema. pod#2 s/p LTCS, wants to go home. instructions reviewed, f/u 6 wk pp check. hgb noted. Documented By: Nickie Rodriguez MD, FACOG Resident Activity Tracking <Rodney Ochoa MD - Last Filed: 02/14/21 07:19> Resident Involvement: Resident Care Provided Care Provided: OB Delivery
[2021-02-14] MEDS: SIMETHICONE 80 MG CHEW PO SCH ×2 (08:08→13:22)
[2021-02-14] MEDS: PRENATAL VITAMIN 1 TAB PO SCH (08:08)
[2021-02-14] MEDS: FERROUS SULFATE 325 MG TAB PO SCH (08:08)
[2021-02-14] MEDS: DOCUSATE SODIUM 100 MG CAP PO SCH (08:08)
[2021-02-14] MEDS ORDERED: bisacodyL 10 MG SUPP PR PRN (11:23)
--- NOTE | 2021-02-15 20:33 | Discharge Summary ---
Date of Service Date of admission: February 11, 2021 Date of discharge: February 14, 2021 Admission HPI Per Admitting Provider 25 year old 40 weeks and 3 days. Here for induction of labor. Complications with this include history of HSV on valtrex (Not to be discussed with other family members of patient in room). Has been attending OB appointments regularly. Currently on valtrex 500mg bid, ondansetron, multivitamin. Patient had Nicole catheter placed 02/10/21 in the evening. Contractions: 4 minutes apart Fluid or blood loss: Some spotting, no fluid loss. movement: active. Discharge Data Procedures Performed Operation Date: 02/12/21 10:30 Actual Procedures p Primary Low Transverse Section in - Nickie Rodriguez MD, [facility] Course (1) Encounter for induction of labor: (2) Maternal fever affecting labor: Leonila was admitted on 02/11 and began pitocin. When nicole removed that am was 3cm dilated. Eventually had AROM and epidural. Developed fever in course of labor and did get one dose of amp/gent. The following morning 02/12 began 2nd stage. Pushed for about 2.5hours and then refused to continue to push. She was complaining of maternal exhaustion and intense back pain. Offered attempted vacuum assistance vs. section and opted for latter. Suspicion of LOP presentation prior to delivery and confirmed at time of delivery. The patient underwent the above stated procedure without incident and her postoperative course and recovery was uncomplicated. On her postoperative day #2 she was tolerating a regular diet, voiding spontaneously, ambulating without problem and was using oral meds for adequate pain control. She was bottle feeding her baby and felt ready to go home. Her postoperative hemoglobin was 8.5. She was given written and verbal discharge instructions and told to followup in office at 6wks. She was given appropriate pain medicine prescriptions. Coding Level of Care Code None Diagnoses Encounter for induction of labor Z34.90 Maternal fever affecting labor O75.2
== END 2021-02-14 15:15 | disposition home or self-care (01) | DRG 787 ==
LOC: 4S1 07:32 → 4S2 02-12 13:50
DX: Z37.0 Single live birth; O98.32 Other infections with a predominantly sexual mode of transmission complicating childbirth; O48.0 Post-term pregnancy; O77.0 Labor and delivery complicated by meconium in amniotic fluid; Z3A.40 40 weeks gestation of pregnancy; O32.8XX0 Maternal care for other malpresentation of fetus, not applicable or unspecified; O75.81 Maternal exhaustion complicating labor and delivery